=== PATIENT | female | born 1960 | race Asian ===

== ENCOUNTER 2016-12-02 06:31 | Day surgery (SDC) | payer BC ==
[~2016-12-02] VITALS: Ht 144.8 cm; Wt 52.9 kg
[~2016-12-02 06:31] MED LIST: VITAMINS
[2016-12-02 07:19] VITALS: Ht 144.8 cm; Wt 52.9 kg
[2016-12-02] MEDS ORDERED: CHOL400T32 PO (07:44)
[2016-12-02] MEDS ORDERED: FENTAnyl 50 MCG/ML VIAL ONE (08:35)
[2016-12-02] MEDS ORDERED: MIDAZOLAM 1 MG/ML 2 ML INJ ONE (08:35)
[2016-12-02 09:05] VITALS: BP 103/66; PULSE 54; RESP 19
--- NOTE | 2016-12-02 11:44 | GILP ---
DATE OF PROCEDURE: NAME OF PROCEDURE: Colonoscopy and biopsy. SURGEON: Geni Benjamin MD PREOPERATIVE DIAGNOSES: History of colon polyps. POSTOPERATIVE DIAGNOSES: 1. Colonoscopy all the way to the cecum. 2. Biopsy of the previous polypectomy site was done. 3. Internal hemorrhoids. INDICATION FOR THE PROCEDURE: Ms. Theresa Arizmendi is a 56-year-old female patient who was noted to howard ve a large flat polyp near the hepatic flexure on a previous colonoscopic examination. Because of t he flat nature of the polyp and large size, it was removed in pieces. The area was previously tatto oed with Sandrine ink. The patient was scheduled for a followup exam and removal of the residual polyp s if anything left behind. The procedure and possible complications are well explained to the patient. She understood and cons ented to the procedure. DESCRIPTION OF PROCEDURE: Under the influence of fentanyl and Versed, the colonoscope was carefully introduced in the rectum and under direct vision, it was advanced all the way to the cecum. FINDINGS: The previous polypectomy site was identified, it had residual tattooing. There was no de finite residual polyp in the area of the previous polypectomy. Biopsies were taken for histopatholo gy. The patient had internal hemorrhoids. She tolerated the procedure very well, and there was no complication from the procedure. At the end of the procedure, she was awake with stable vital signs , and she was discharged home to the care of her family. IMPRESSION: 1. Colonoscopy all the way to the cecum. 2. No definite residual polyp was identified in the previous polypectomy site at the hepatic flexur e. 3. The area had tattooing with Sandrine ink. 4. Biopsies were taken for histopathology. 5. Internal hemorrhoids. PLAN: 1. Await histopathology report. 2. Followup colonoscopy in 3 years. Dictated By: GENI GANDARA/JAYJAY Conf#: [id number] DID#: [id number]
== END 2016-12-02 10:54 | disposition home or self-care (01) ==
LOC: GIL 06:31
PROVIDERS: ATTEND Internal Medicine Gastroenterology
DX: Z86.010 Personal history of colon polyps (principal); K64.8 Other hemorrhoids
CPT/HCPCS: 45380; J2250; J3010